=== PATIENT | male | born 1960 | race Caucasian/White ===

== ENCOUNTER 2022-12-14 02:42 | Day surgery (SDC) | payer OTHER, SELFPAY ==
[2022-12-02 10:28] VITALS: BMI 33.9
--- NOTE | 2022-12-13 16:35 | PM.HPGS ---
History of Present Illness History of Present Illness Consent: Risks, benefits, and alternatives have been discussed and questions answered. Patient agrees to proceed with procedure. Chief complaint: neoplasm screening Narrative: Declan Quintana is a 62 year old male referred for colon cancer screening. His last colonoscopy was 12 years ago. Review of Systems Review of Systems: All systems reviewed & are unremarkable except as noted in HPI and below PMFSH Past Medical History Medical History Retinal detachment L eye; s/p repair Family History Family History Father Family history of [id number] deficiency Other Family history of alcoholism Family history of mental disorder Hypertension Social History Social History Smoking packs per day: 1 Smoking cigarettes per day: 20.0 Years smoked: 2 Smoking pack-years: 2.00 Smoking status: Former smoker Tobacco type: cigarettes Second hand tobacco smoke exposure: No Alcohol intake: current Drinks per week: 3 Alcohol use details: 3 drinks monthly Substance use: never Substance use type: does not use Living arrangements: alone Occupation/Education: occupation Additional occupation/education comments: Self Employed Gender identity (if verbalized by the patient): Male Spiritual care concerns: No Meds Home Medications and Allergies Home Medications Medication Instructions Recorded Confirmed Type hydrochlorothiazide 25 mg tablet 25 mg PO DAILY #90 tabs 10/07/22 12/14/22 Rx lisinopril 40 mg tablet 40 mg PO DAILY #90 tabs 11/21/22 12/14/22 Rx Allergies Allergy/AdvReac Type Severity Reaction Status Date / Time ragweed pollen Allergy Other Verified 12/14/22 07:02 Exam Const: General: alert Orientation/consciousness: patient oriented x3 Resp: Auscultation: clear to auscultation bilaterally Cardio: Rhythm: regular rhythm GI: GI Palp: Yes Soft to palpation and No Tenderness to palpation present (GI) Neuro: General: patient oriented x3 Assessment and Plan Assessment and plan (1) Colon cancer screening: Code(s): Z12.11 - Encounter for screening for malignant neoplasm of colon Status: Acute Assessment and Plan: Colonoscopy with possible biopsy or polypectomy or cautery or injection of substances.
[2022-12-14 07:04] VITALS: BP 158/74; PULSE 60; RESP 18; TEMP 36.6; O2SAT 98; BMI 35.8
[2022-12-14] MEDS: LACTATED RINGERS 1,000 ML 150 ML IV CONT (07:14)
--- NOTE | 2022-12-14 07:48 | WPDANESEPPF ---
Anes - Initial Pre Proc Eval Procedure: Operation Date: 12/14/22 08:00 Proposed Procedures p Screening Colonoscopy - Ran Verma MD Date/Time: 12/14/22 07:48 Surgeon: Ran Verma MD Pre Op Diagnosis: neoplasm screening Patient Data Age: 62 Gender: M Height: 1.83 m Weight: 119.7 kg Last Vital Signs Temp 97.8 F 12/14/22 07:04 Pulse 60 12/14/22 07:04 Resp 18 12/14/22 07:04 BP 158/74 H 12/14/22 07:04 Pulse Ox 98 12/14/22 07:04 O2 Del Method Room Air 12/14/22 07:04 Allergies Allergy/AdvReac Type Severity Reaction Status Date / Time ragweed pollen Allergy Other Verified 12/14/22 07:02 Home Medications Medication Instructions Recorded Confirmed Type hydrochlorothiazide 25 mg tablet 25 mg PO DAILY #90 tabs 10/07/22 12/14/22 Rx lisinopril 40 mg tablet 40 mg PO DAILY #90 tabs 11/21/22 12/14/22 Rx Patient hx anesthesia problems: none Family hx anesthesia problems: none Results Review: All pre-operative results and documents have been reviewed as part of the pre-operative evaluation. [facility] Past Medical History Medical History Retinal detachment L eye; s/p repair Family History Family History Father Family history of [id number] deficiency Other Family history of alcoholism Family history of mental disorder Hypertension Social History Social History Smoking packs per day: 1 Smoking cigarettes per day: 20.0 Years smoked: 2 Smoking pack-years: 2.00 Smoking status: Former smoker Tobacco type: cigarettes Second hand tobacco smoke exposure: No Alcohol intake: current Drinks per week: 3 Alcohol use details: 3 drinks monthly Substance use: never Substance use type: does not use Living arrangements: alone Occupation/Education: occupation Additional occupation/education comments: Self Employed Gender identity (if verbalized by the patient): Male Spiritual care concerns: No Anes - Eval Final PreProcedure Day of Procedure 12/14/22 07:48 Patient weight: obese Heart: regular rate and rhythm Lungs: clear to auscultation Airway: Mallampati scale class II Neurological: alert and oriented Last oral intake: >/= 8 hours ASA classification: II Emergent: no Anesthetic plan: proceed Anesthesia type and monitoring: general GIVS and standard monitoring Results Review: All pre-operative results and documents have been reviewed as part of the pre-operative evaluation. Informed Consent: The patient's anesthetic plan and its attendant risks and benefits were discussed with the patient/family/POA. Questions were solicited and answers provided to the satisfaction of the patient/family/POA.
[2022-12-14] MEDS: SIMETHICONE ORAL SUSPENSION 20 MG/0.3 ML 30 ML BOTTLE 0.6 ML IRRIGATION (08:04)
[2022-12-14 08:16] VITALS: BP 101/61; PULSE 58; RESP 17; O2SAT 98
[2022-12-14 08:26] VITALS: BP 102/61; PULSE 58; RESP 17; O2SAT 97
[2022-12-14 08:36] VITALS: BP 140/76; PULSE 53; RESP 20; O2SAT 99
== END 2022-12-14 09:14 | disposition home or self-care (01) ==
PROVIDERS: PCP Family Medicine; Referring Provider Physician Assistant; Visit Provider Internal Medicine Gastroenterology
PROC: 0DJD8ZZ Inspection of Lower Intestinal Tract, Via Natural or Artificial Opening Endoscopic (ICD-10-PCS; CPT 45378; principal; 2022-12-14 08:00)
DX: Z12.11 Encounter for screening for malignant neoplasm of colon (principal); K57.30 Diverticulosis of large intestine without perforation or abscess without bleeding; Z87.891 Personal history of nicotine dependence; E66.9 Obesity, unspecified; Z68.35 Body mass index [BMI] 35.0-35.9, adult
CPT/HCPCS: 45378; J2704; J7120